=== PATIENT | male | born 1995 | race Caucasian/White ===

== ENCOUNTER 2017-05-23 21:10 | Emergency (ER) | payer MEDICAID, OTHER ==
[~2017-05-23 21:10] MED LIST: ACHD5005 PO; CYCL10TA9 PO; DIPH50CA33 PO; EPIN0.3P2; HYDR1TAB PO; LRT10T; NAPR-243 PO; PRD20T PO
--- OUTSIDE RECORDS SUMMARY | 2017-05-23 21:15 | XMS REPORT ---
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 Phone LUIS VERA Unavailable PROBLEMS Type Condition ICD9-CM Code [id number] Code Onset Dates Condition Status SNOMED Code Problem Rash and other nonspecific skin eruption 782.1 Active [id number] ALLERGIES Substance Reaction Event Type Date Status Wasp Venom Unknown Drug Allergy May, Active Bee Venom (honey Bee) Unknown Non Drug Allergy May, Active SOCIAL HISTORY No smoking Hx information available PLAN OF CARE Activity Details Follow Up prn Reason: VITAL SIGNS Height 74 in 2016-06-04 Weight 256.0 lbs 2016-06-04 Temperature 97.9 degrees Fahrenheit 2016-06-04 Heart Rate 76 bpm 2016-06-04 Respiratory Rate 20 2016-06-04 BMI 32.86 kg/m2 2016-06-04 Blood pressure systolic 128 mmHg 2016-06-04 Blood pressure diastolic 70 mmHg 2016-06-04 MEDICATIONS Medication Instructions Dosage Frequency Start Date End Date Duration Status Cetirizine HCl 10 MG Orally Once a day 1 tablet 24h May, Jun, 30 day(s) Active Flonase Allergy Relief 50 MCG/ACT Nasally twice a day 1 spray in each nostril 12h May, 30 day(s) Active EpiPen 2-Hayden 0.3 mg/0.3 mL (1:1,000) inject 0.3 milliliter (0.3 mg) by intramuscular route once as needed for anaphylaxis September, Active RESULTS No Results PROCEDURES Procedure Date Ordered Related Diagnosis Body Site Office Visit, Est Pt., Level 3 Jun 04, 2016 IMMUNIZATIONS No Known Immunizations
--- OUTSIDE RECORDS SUMMARY | 2017-05-23 21:15 | XMS REPORT | Continuity of Care Document ---
Author Author [facility] Organization [facility] Address Unknown Phone Unavailable Allergies There is no data. Medications There is no data. Problems There is no data. Procedures There is no data. Results There is no data. Encounters ACCT No. Visit Date/Time Discharge Status Pt. Type Provider Facility Loc./Unit Complaint [id number] 12/19/2013 14:46:00 12/19/2013 23:59:59 [facility] Outpatient [id number] 12/12/2013 17:29:00 12/12/2013 18:54:00 [facility] Emergency [id number] 03/08/2013 14:17:00 03/08/2013 23:59:59 [facility] Outpatient [id number] 02/08/2013 15:24:00 02/08/2013 23:59:59 [facility] Outpatient [id number] 01/18/2013 20:29:00 01/18/2013 21:40:00 DIS Emergency
== END 2017-05-23 21:39 | disposition left against medical advice (07) ==
LOC: EDUNIT# 21:10 → ER 21:12
DX: J11.1 Influenza due to unidentified influenza virus with other respiratory manifestations (principal)

== ENCOUNTER 2018-06-06 20:08 | Emergency (ER) | payer SELFPAY ==
[~2018-06-06] VITALS: Ht 182.9 cm; Wt 127.0 kg
--- NOTE | 2018-06-06 20:27 | ED GU-Male ---
General Chief Complaint: -Male Stated Complaint: GROIN PAIN Source: patient Exam Limitations: no limitations History of Present Illness Date Seen by Provider: Jun 06, 2018 Time Seen by Provider: 20:20 Initial Comments To ER with reports of dental pain. He states that last night he was having intercourse when he felt a popping sensation in his penis with missed attempt at insertion. He reports he had some minor pain immediately but not severe and he was able to finish intercourse and reach orgasm. He was then able to have intercourse again later that evening without any discomfort or troubles with orders. As the night went on to develop slight achiness in the left testicle which persists today. He rates the pain at 1 out of 10. Denies any dysuria or penile discharge. Denies any blood at the urethral meatus. Denies any pain at the penile shaft. He read about this on the Internet is concerned that he may have a fractured penis. Timing/Duration: yesterday Severity/Quality: moderate Location: unknown Radiation: none Prior Genitourinary Problems: none Sexual [place] History: single partner Associated Symptoms: denies symptoms Allergies and Home Medications Allergies Coded Allergies: bee venom (honey bee) (Unverified Allergy, Severe, THROAT SWELLING, ) Home Medications Cyclobenzaprine Hcl 10 Mg Tablet, 1 EACH PO Q8HR Prescribed by: ELZA DSOUZA on 12/12/131829 Naproxen 500 Mg Tablet, 1 EACH PO TID PRN for PAIN FOR PAIN Prescribed by: ELZA DSOUZA on 12/12/131829 Patient Home Medication List Home Medication List Reviewed: Yes Review of Systems Review of Systems Constitutional: see HPI EENTM: see HPI Respiratory: no symptoms reported Cardiovascular: no symptoms reported Genitourinary: see HPI Musculoskeletal: no symptoms reported Skin: no symptoms reported Psychiatric/Neurological: No Symptoms Reported Past Izinjhp-Wyxvxs-Mmscuh Hx Patient Social History Recent Foreign Travel: No Contact w/Someone Who Travel: No Immunizations Up To Date Tetanus Booster (TDap): Less than 5yrs Past Medical History Reproductive Disorders: No Physical Exam Vital Signs Vital Signs - First Documented 06/06/18 20:20 Temp 97.5 Pulse 86 Resp 16 B/P (MAP) 178/82 (114) Pulse Ox 98 Capillary Refill : Height, Weight, BMI Height: 6'3" Weight: 220lbs. oz. 99.135841hu; BMI Method:Stated General Appearance: WD/WN, no apparent distress, obese HEENT: PERRL/EOMI, normal ENT inspection Neck: non-tender, full range of motion Respiratory: no respiratory distress, no accessory muscle use Gastrointestinal: normal bowel sounds, non tender Genital/Rectal: other (Genital exam done with Mary HARO at the bedside. There is no erythema or ecchymosis or swelling or lesion to the penile shaft. There is no palpable nodule to the penile shaft. No erythema discharge or blood at the meatus. Each testicle is symmetrical and he reports only minimal discomfort on palpation of the left testicle.) Neurologic/Psychiatric: alert, normal mood/affect Skin: normal color, warm/dry Progress/Results/Core Measures Suspected Sepsis SIRS Temperature: Pulse: Respiratory Rate: Blood Pressure / Mean: Results/Orders Lab Results Laboratory Tests Test 06/06/18 20:20 Range/Units My Orders Orders - JUAN ANTONIO VILLEGAS APRN Chlamydia Trachomatis Urine (06/06/18 20:19) Neis Андрей Dna Urine Test (06/06/18 20:19) Ua Culture If Indicated (06/06/18 20:19) Vital Signs/I&O 06/06/18 20:20 Temp 97.5 Pulse 86 Resp 16 B/P (MAP) 178/82 (114) Pulse Ox 98 Capillary Refill : Departure Communication (Admissions) Given that he did not have immediate detumescence and was able to have intercourse again after the initial injury without trouble, there is no pain no bruising no swelling no erythema no tenderness to the penile shaft, I do not have any concern of penile fracture. The scrotum is normal in appearance: The left testicle is slightly tender to palpation but he only rates this at 1 out of 10. Due to the possibility of an epididymitis I will place him on antibiotic and follow-up with primary care Impression Primary Impression: Left testicular pain Disposition: HOME, SELF-CARE Condition: Improved Departure-Patient Inst. Decision time for Depature: 20:29 Referrals: RAY MARQUEZ MD (PCP) Primary Care Physician Patient Instructions: Epididymitis (DC) Add. Discharge Instructions: 1. I suspect that your discomfort in the left testicle is related to an epididymitis. Treatment that is antibiotics, ice, elevation of the scrotum. Pain persists, follow-up with your doctor tomorrow to make an appointment to be seen and to obtain ultrasound. Take antibiotics as directed meantime. Return to ER for any intolerable or worsening pain. All discharge instructions reviewed with patient and/or family. Voiced understanding. Scripts Sulfamethoxazole/Trimethoprim (Bactrim Ds Tablet) 1 Each Tablet 1 EACH PO BID, #20 TAB Prov: JUAN ANTONIO VILLEGAS APRN 06/06/18 JUAN ANTONIO VILLEGAS APRN Jun 06, 2018 20:27
[2018-06-06 20:29] LABS: BILIRUBIN,URINE NEGATIVE (NEGATIVE); CLARITY,URINE CLEAR; COLOR,URINE YELLOW; GLUCOSE, URINE (UA) NEGATIVE (NEGATIVE); KETONES,URINE NEGATIVE (NEGATIVE); LEUKOCYTE ESTERASE ,URINE 1+ (NEGATIVE); NITRITE,URINE NEGATIVE (NEGATIVE); PH,URINE 6 (5-9); PROTEIN,URINE 1+ (NEGATIVE); UROBILINOGEN,URINE NORMAL (NORMAL)
[2018-06-06] MEDS ORDERED: SULF1TAB35 PO (20:30)
[2018-06-06 20:44] LABS: BACTERIA,URINE NEGATIVE /HPF; RBC,URINE RARE /HPF; WBC,URINE RARE /HPF
[2018-06-06 20:51] VITALS: BP 178/82
== END 2018-06-06 20:51 | disposition home or self-care (01) ==
LOC: EDUNIT# 20:08 → ER 20:09
DX: N50.812 Left testicular pain (principal)
CPT/HCPCS: 36415; 81000; 87491; 87591; 99282

== ENCOUNTER 2021-12-17 21:03 | Emergency (ER) | payer BC ==
[~2021-12-17] VITALS: Ht 190.5 cm; Wt 136.0 kg
[~2021-12-17 21:03] MED LIST changes: +SULF1TAB38 PO
[2021-12-17 21:15] VITALS: BP 143/76
--- NOTE | 2021-12-17 21:36 | ED Integumentary General ---
General Chief Complaint: Bite-Animal/Human/Insect Stated Complaint: BEE STING Source: patient Exam Limitations: no limitations History of Present Illness Date Seen by Provider: Dec 17, 2021 Time Seen by Provider: 21:19 Initial Comments Patient to the ER by private conveyance chief complaint that at 8:00 he was stung by a bee on his left upper quadrant abdomen anteriorly. He has a history of allergy to bees. Is never had anaphylaxis but he states he has had e pinephrine in the ER in the past. He took 2 tablets of old Benadryl which he is not sure how old they were but they did seem to make him feel better by the time he got here. He is having some tingling and swelling in his face lips and mouth. He is not having any difficulty breathing or drinking or swallowing his own saliva. No stridor or wheezing. No history of lung disease or smoking. He does have an epinephrine pen at home with 2 to 3 years old but he states it did spend a year or 2 living in his truck throughout the heat and he is unsure how good it is. Allergies and Home Medications Allergies Coded Allergies: bee venom (honey bee) (Unverified Allergy, Severe, THROAT SWELLING, 12/12/13) Patient Home Medication List Home Medication List Reviewed: Yes Cyclobenzaprine Hcl (Cyclobenzaprine Hcl) 10 Mg Tablet, 1 EACH PO Q8HR Prescribed by: ELZA DSOUZA on 12/12/13 183 Epinephrine (Epipen) 0.3 Mg/0.3/Syringe Pen.injctr, (Reported) Entered as Reported by: THO FLORES on 02/20/09 1655 Epinephrine (Epipen 2-Haydne) 0.3 Mg/0.3 Ml Auto.injct, 0.3 MG IJ Q15M PRN for anaphylaxis Prescribed by: SANIA CHAMPAGNE on 12/17/21 2141 Naproxen (Naprosyn) 500 Mg Tablet, 1 EACH PO TID PRN for PAIN Prescribed by: ELZA DSOUZA on 12/12/13 183 Sulfamethoxazole/Trimethoprim (Bactrim Ds Tablet) 1 Each Tablet, 1 EACH PO BID Prescribed by: JUAN ANTONIO VILLEGAS on 06/06/18 2030 Review of Systems Review of Systems Constitutional: No chills, No diaphoresis EENTM: No ear discharge, No ear pain Respiratory: No cough, No phlegm Cardiovascular: No chest pain, No edema Gastrointestinal: No abdominal pain, No nausea, No vomiting Genitourinary: No dysuria, No frequency All Other Systems Reviewed Negative Unless Noted: Yes Past Ibyqfeb-Clqfkp-Neqmmb Hx Patient Social History Tobacco Use?: No Use of E-Cig and/or Vaping dev: No Immunizations Up To Date Tetanus Booster (TDap): Less than 5yrs Seasonal Allergies Seasonal Allergies: No Past Medical History Surgeries: Yes Orthopedic Respiratory: No Cardiac: No Neurological: No Reproductive Disorders: No Genitourinary: No Gastrointestinal: No Musculoskeletal: No Endocrine: No HEENT: No Cancer: No Psychosocial: No Integumentary: No Blood Disorders: No Physical Exam Vital Signs Vital Signs - First Documented 12/17/21 21:15 Temp 36.4 Pulse 66 Resp 22 B/P (MAP) 143/76 (98) Pulse Ox 95 Capillary Refill : General Appearance: WD/WN, no apparent distress HEENT: PERRL/EOMI, normal ENT inspection Neck: non-tender, full range of motion Cardiovascular: normal peripheral pulses, regular rate, rhythm Respiratory: lungs clear, normal breath sounds, no respiratory distress, no a ccessory muscle use Gastrointestinal: normal bowel sounds, non tender Extremities: normal inspection, normal capillary refill Neurologic/Psychiatric: alert, normal mood/affect, oriented x 3 Skin: normal color, warm/dry Progress/Results/Core Measures Results/Orders My Orders Orders - SANIA CHAMPAGNE Ed Iv/Invasive Line Start (12/17/21 21:41) Ns Iv 500 Ml (Sodium Chloride 0.9%) (12/17/21 21:45) Famotidine Injection (Pepcid Injection) (12/17/21 21:45) Loratadine Tablet (Claritin Tablet) (12/17/21 21:45) Diphenhydramine Injection (Benadryl Inje (12/17/21 21:45) Medications Given in ED Current Medications Medications Dose Ordered Sig/Javan Route Start Time Stop Time Status Last Admin Dose Admin Diphenhydramine HCl 25 mg ONCE ONCE IVP 12/17/21 21:45 12/17/21 21:46 DC 12/17/21 22:04 25 MG Famotidine 20 mg ONCE ONCE IVP 12/17/21 21:45 12/17/21 21:46 DC 12/17/21 22:04 20 MG Loratadine 10 mg ONCE ONCE PO 12/17/21 21:45 12/17/21 21:46 DC 12/17/21 22:04 10 MG Sodium Chloride 500 ml @ 0 mls/hr Q0M ONCE IV 12/17/21 21:45 12/17/21 21:46 DC 12/17/21 22:04 0 MLS/HR Vital Signs/I&O 12/17/21 21:15 Temp 36.4 Pulse 66 Resp 22 B/P (MAP) 143/76 (98) Pulse Ox 95 Progress Progress Note #1: Time: 21:38 Progress Note Plan to give him a IV injection of Pepcid, loratadine p.o. and 25 mg Benadryl and observe him for about an hour. If he still doing okay we will let him go home with a renewed prescription for his epinephrine pen. Progress Note #2: Time: 22:40 Progress Note Patient is feeling much better not having any symptoms. His fluids are done and he is ready to go home. Return precautions have been discussed. Departure Impression Primary Impression: Bee sting Qualified Codes: T63.441A - Toxic effect of venom of bees, accidental (unintentional), initial encounter Additional Impression: Angioedema Qualified Codes: T78.3XXA - Angioneurotic edema, initial encounter Disposition: 01 HOME, SELF-CARE Condition: Improved Departure-Patient Inst. Decision time for Depature: 22:41 Referrals: RAY MARQUEZ MD (PCP/Family) Primary Care Physician Patient Instructions: Insect Bites and Stings Add. Discharge Instructions: If you have difficulty breathing or swallowing your saliva and then take an injection of the epinephrine once every 15 minutes until it improves on your way to the ER. Continue taking loratadine once or twice a day until the swelling goes away. Benadryl 1 or 2 tablets every 6 hours as needed until swelling resolves. Pepcid 1 tablet twice a day until the symptoms resolve. All discharge instructions reviewed with patient and/or family. Voiced understanding. Scripts Epinephrine (Epipen 2-Hayden) 0.3 Mg/0.3 Ml Auto.injct 0.3 MG IJ Q15M PRN for anaphylaxis, #2 EA 0 Refills Prov: SANIA CHAMPAGNE 12/17/21 Work/School Note: Work Release Form Date Seen in the Emergency Department: Dec 17, 2021 Return to Work: Dec 18, 2021 Restrictions: No Restrictions SANIA CHAMPAGNE Dec 17, 2021 21:36
[2021-12-17] MEDS ORDERED: EPIN0.3P3 IJ (21:41)
[2021-12-17] MEDS ORDERED: FAMOTIDINE 20MG/2ML IV (PEPCID) IVP ONE (21:45)
[2021-12-17] MEDS ORDERED: diphenhydrAMINE 50 MG/ML INJ (BENADRYL) IVP ONE (21:45)
[2021-12-17] MEDS ORDERED: LORATADINE (CLARITIN) 10 MG TAB PO ONE (21:45)
[2021-12-17] MEDS ORDERED: NS IV 500 ML 500 ML IV ONE (21:45)
== END 2021-12-17 22:48 | disposition home or self-care (01) ==
LOC: EDUNIT# 21:03 → ER 21:05
DX: T63.441A Toxic effect of venom of bees, accidental (unintentional), initial encounter (principal); T78.3XXA Angioneurotic edema, initial encounter; Z28.310 Unvaccinated for COVID-19